=== PATIENT | male | born 1995 | race Caucasian/White ===

== ENCOUNTER 2020-12-30 06:48 | Emergency (ER) | payer BC ==
--- NOTE | 2020-12-30 07:09 | EDM.PDOC ---
ED HPI GENERAL MEDICAL PROBLEM - General Chief Complaint: Chest Pain Stated Complaint: CHEST PAIN Time Seen by Provider: 12/30/20 07:08 Source of Information: Reports: Patient History Limitations: Reports: No Limitations - History of Present Illness INITIAL COMMENTS - FREE TEXT/NARRATIVE: 25-year-old male presents to the ED complaining of retrosternal sharp stabbing chest pains since around 0430 hrs. when he got up for work this morning. Patient states that they are occasionally worse with breathing. He denies cough sputum production fever chills nausea vomiting or heartburn or indigestion. 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 No recent trauma to the chest wall. Pain does not radiate through to his back. He has taken no medication for the discomfort. Onset: Today, Sudden Onset Date: 12/30/20 Onset Time: 04:30 (Awoke with central chest discomfort at 0430 hrs. this morning when he was getting up for work.) Duration: Hour(s):, Intermittent, Waxing/Waning Location: Reports: Chest (Central chest pain which is sharp and stabbing.) Quality: Reports: Sharp, Stabbing Severity: Moderate Improves with: Reports: None Worsens with: Reports: Other (Perhaps made worse by deep breathing.) Context: Denies: Activity, Exercise, Lifting, Sick Contact, Trauma, Other Associated Symptoms: Reports: Chest Pain. 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 [No Known Home Meds] 12/30/20 [History] Past Medical History HEENT History: Reports: Impaired Vision Cardiovascular History: Reports: None Respiratory History: Reports: None Gastrointestinal History: Reports: None Genitourinary History: Reports: None Musculoskeletal History: Reports: None Neurological History: Reports: None Psychiatric History: Reports: None Endocrine/Metabolic History: Reports: None Hematologic History: Reports: None Immunologic History: Reports: None Oncologic (Cancer) History: Reports: None Dermatologic History: Reports: None - Infectious Disease History Infectious Disease History: Reports: Novel Coronavirus - Past Surgical History Head Surgeries/Procedures: Reports: None HEENT Surgical History: Reports: Oral Surgery Respiratory Surgical History: Reports: None GI Surgical History: Reports: None Male Surgical History: Reports: None Musculoskeletal Surgical History: Reports: None Social & Family History - Family History Family Medical History: No Pertinent Family History Oncologic: Reports: Breast, Lung - Tobacco Use Tobacco Use Status *Q: Never Tobacco User - Caffeine Use Caffeine Use: Reports: Energy Drinks - Recreational Drug Use Recreational Drug Use: No - Living Situation & Occupation Living situation: Reports: Single Occupation: Employed ED ROS GENERAL - Review of Systems Review Of Systems: See Below Constitutional: Denies: Fever, Chills, Malaise, Weakness, Fatigue HEENT: Reports: No Symptoms Respiratory: Reports: Pleuritic Chest Pain. Denies: Shortness of Breath, Wheezing, Cough, Sputum (Mildly pleuritic chest pain.), Hemoptysis Cardiovascular: Reports: Chest Pain, Other (Pectus excavating deformity). Denies: Blood Pressure Problem (Central chest pain which is mostly sharp and stabbing intermittent.), Claudication, Dyspnea on Exertion, Edema, Lightheadedness, Orthopnea, Palpitations, PND, Syncope Endocrine: Reports: No Symptoms GI/Abdominal: Reports: No Symptoms : Reports: No Symptoms Musculoskeletal: Reports: No Symptoms Skin: Reports: No Symptoms Neurological: Reports: No Symptoms Psychiatric: Reports: No Symptoms Hematologic/Lymphatic: Reports: No Symptoms Immunologic: Reports: No Symptoms ED EXAM, GENERAL - Physical Exam Exam: See Below Exam Limited By: No Limitations General Appearance: Alert, WD/WN, No Apparent Distress, Other (Temperature is 36.4 degrees. Heart rate 81 and sinus respiratory is 18 BP 137/94 pulse ox 99% room air. Blood pressure subsequently settled to 130/82.) Eye Exam: Bilateral Eye: Normal Inspection Neck: Normal Inspection, Supple, Non-Tender, Full Range of Motion. No: Lymphadenopathy (R) Respiratory/Chest: No Respiratory Distress, Lungs Clear, Normal Breath Sounds, No Accessory Muscle Use, Prolonged Expiration, Other (Gentle pectus excavating deformity anterior chest) Cardiovascular: Normal Peripheral Pulses, Regular Rate, Rhythm, No Edema, No Gallop, No Murmur, No Rub Peripheral Pulses: 3+: Carotid (L), Carotid (R), Posterior Tibial (L), Posterior Tibial (R), Dorsalis Pedis (L), Dorsalis Pedis (R) GI/Abdominal: Normal Bowel Sounds, Soft, Non-Tender, No Organomegaly, No Abnormal Bruit, No Mass, Pelvis Stable Back Exam: Other (Mild scoliosis) Extremities: Normal Inspection (Thoracic spine concave to the right), Normal Range of Motion, Non-Tender Neurological: Alert, Oriented, CN II-XII Intact, Normal Cognition Psychiatric: Normal Affect, Normal Mood Skin Exam: Warm, Dry, Intact, Normal Color, No Rash #1 Interpretation EKG Date: 12/30/20 Time: 06:55 Rhythm: NSR Rate (Beats/Min): 78 [place]: RAD-Right [place] Deviation (Borderline right axis deviation at 100 degrees) P-Wave: Enlarged QRS: Other (Consider biatrial enlargement RSR prime wave V1 consider normal variant. Early R wave transition V2 consider right ventricular appear to be pattern) ST-T: Normal QT: Normal Course - Vital Signs Last Recorded V/S: Last Vital Signs Temp 36.4 C 12/30/20 06:58 Pulse 81 12/30/20 06:58 Resp 18 12/30/20 06:58 BP 137/94 H 12/30/20 06:58 Pulse Ox 99 12/30/20 06:58 - Orders/Labs/Meds Orders: Active Orders 24 hr Category Date Time Status EKG 12 Lead [EKG Documentation Completion] [RC] STAT Care 12/30/20 07:00 Active Dextrose 5%-0.9% NaCl [Dextrose 5%-Normal Saline] 1,000 Med 12/30/20 07:15 Active ml IV ASDIRECTED Ketorolac [Toradol] Med 12/30/20 07:15 Active 30 mg IVPUSH ONETIME Medication Orders Dextrose/Sodium Chloride (Dextrose 5%-Normal Saline) 1,000 mls @ 150 mls/hr IV ASDIRECTED MEHDI Last Admin: 12/30/20 07:50 Dose: 150 mls/hr Documented by: ANA Ketorolac Tromethamine (Ketorolac 30 Mg/Ml Sdv) 30 mg IVPUSH ONETIME MEHDI Last Admin: 12/30/20 07:45 Dose: 30 mg Documented by: ANA Labs: Laboratory Tests 12/30/20 12/30/20 12/30/20 Range/Units 07:00 07:00 07:00 WBC 3.94 L (4.23-9.07) K/mm3 RBC 4.91 (4.63-6.08) M/mm3 Hgb 15.4 (13.7-17.5) gm/dl Hct 43.9 (40.1-51.0) % MCV 89.4 (79.0-92.2) fl MCH 31.4 (25.7-32.2) pg MCHC 35.1 (32.2-35.5) g/dl RDW Std Deviation 38.7 (35.1-43.9) fL Plt Count 317 (163-337) K/mm3 MPV 9.6 (9.4-12.3) fl Neut % (Auto) 49.0 (34.0-67.9) % Lymph % (Auto) 38.6 (21.8-53.1) % [place] % (Auto) 10.9 (5.3-12.2) % Eos % (Auto) 1.0 (0.8-7.0) Baso % (Auto) 0.5 (0.1-1.2) % Neut # (Auto) 1.93 (1.78-5.38) K/mm3 Lymph # (Auto) 1.52 (1.32-3.57) K/mm3 [place] # (Auto) 0.43 (0.30-0.82) K/mm3 Eos # (Auto) 0.04 (0.04-0.54) K/mm3 Baso # (Auto) 0.02 (0.01-0.08) K/mm3 PT 12.0 (9.7-12.0) SECONDS INR 1.12 APTT 32.1 H (21.7-31.4) SECONDS D-Dimer, Quantitative < 0.19 L (0.19-0.50) mg/L Sodium 143 (136-145) mEq/L Potassium 3.8 (3.5-5.1) mEq/L Chloride 107 (98-107) mEq/L Carbon Dioxide 25 (21-32) mEq/L Anion Gap 14.8 (5-15) BUN 10 (7-18) mg/dL Creatinine 0.9 (0.7-1.3) mg/dL Est Cr Clr Drug Dosing 115.71 mL/min Estimated GFR (MDRD) > 60 (>60) mL/min BUN/Creatinine Ratio 11.1 L (14-18) Glucose 101 H (70-99) mg/dL Calcium 9.2 (8.5-10.1) mg/dL Total Bilirubin 0.7 (0.2-1.0) mg/dL AST 14 L (15-37) U/L ALT 19 (16-63) U/L Alkaline Phosphatase 55 (46-116) U/L CK-MB (CK-2) 0.5 (0-3.6) ng/ml Troponin I < 0.017 (0.00-0.056) ng/mL Total Protein 7.5 (6.4-8.2) g/dl Albumin 4.5 (3.4-5.0) g/dl Globulin 3.0 gm/dL Albumin/Globulin Ratio 1.5 (1-2) Meds: Medications Generic Name Dose Route Start Last Admin Trade Name Freq PRN Reason Stop Dose Admin Dextrose/Sodium Chloride 1,000 mls @ 150 mls/hr 12/30/20 07:15 12/30/20 07:50 Dextrose 5%-Normal Saline IV 150 mls/hr ASDIRECTED MEHDI Administration Ketorolac Tromethamine 30 mg 12/30/20 07:15 12/30/20 07:45 Ketorolac 30 Mg/Ml Sdv IVPUSH 30 mg ONETIME MEHDI Administration - Radiology Interpretation Free Text/Narrative:: Lori 5-year-old male presents to the ED with recurrent sharp stab he intermittent central chest discomfort pain since awakening this morning. No associated cough, fever, sputum production. No odynophagia. No heartburn symptoms. Plan D5 normal saline at 125 mils per hour. Routine labs ECG to be performed. Chest x-ray to be performed. Given Toradol 30 mg IV for pain relief. - Re-Assessments/Exams Free Text/Narrative Re-Assessment/Exam: 12/30/20 07:48 portable chest x-ray reveals stacks excavating deformity central chest. Heart and mediastinum are normal. Visualized lung parenchyma are normal. 12/30/20 08:52 Normal white count at 3.94 differential shows 49% neutrophils on the auto differential. Hemoglobin 15.4 with hematocrit of 43.9. Platelet counts 317,000. PT is 12.0 with an INR of 1.12 i.e. mildly elevated PTT is 32.1 D-dimer pending. Sodium 143 with potassium 3.8. Chloride 107 with a bicarb of 25. Anion gap is 14.8. BUN is 10 with a creatinine of 0.9 and GFR greater than 60. Glucose is 101. Calcium is 9.2 liver function is normal. CK-MB fraction is 0.5 with a troponin less than 0.017. Total protein 7.5 with an albumin fraction of 4.5. 12/30/20 09:05 D-dimer is less than 0.19. Patient appraised of the findings of his labs. Still having a little bit of right upper anterior chest discomfort which is worsened by movement. Appears to be musculoskeletal in origin. Patient will use Motrin 600 mg every 6 hours as needed for discomfort. Note given to excuse him from the workplace for the remainder of his shift today. Departure - Departure Time of Disposition: 09:14 Disposition: Home, Self-Care 01 Reason for Transfer *Q: Other Condition: Fair Clinical Impression: Non-cardiac chest pain Instructions: Chest Wall Pain, [id number] Referrals: PCP,None [Primary Care Provider] - Forms: ED Department Discharge, ED Return to Work/School Form Additional Instructions: Evaluation in the emergency room this morning in regards to the development of fairly sharp pain in the central chest and now settled a little bit more to the right of the breastbone or sternum. Chest x-ray proved to be completely normal. ECG your heart tracing was normal as well. Lab test also proved that there was no evidence of any heart related illness and certainly no blood clots in the lungs. Lab test did not show any signs of an infective process. It appears that this is musculoskeletal in origin which means muscles in between the ribs have become inflamed for unknown reason sometimes viral and sometimes overwork 2 to 3 days ago. This will go away on its own over the next 2 to 3 days. May use Motrin 600 mg every 6 hours as needed for pain relief. Follow-up with personal care physician if any further problems occur. Sepsis Event Note (ED) - Evaluation Sepsis Screening Result: No Definite Risk - Focused Exam Vital Signs: Vital Signs Temp Pulse Resp BP Pulse Ox 12/30/20 06:58 36.4 C 81 18 137/94 H 99 - My Orders Last 24 Hours: My Active Orders 12/30/20 07:00 EKG 12 Lead [EKG Documentation Completion] [RC] STAT 12/30/20 07:15 Dextrose 5%-0.9% NaCl [Dextrose 5%-Normal Saline] 1,000 ml IV ASDIRECTED Ketorolac [Toradol] 30 mg IVPUSH ONETIME - Assessment/Plan Last 24 Hours: My Active Orders 12/30/20 07:00 EKG 12 Lead [EKG Documentation Completion] [RC] STAT 12/30/20 07:15 Dextrose 5%-0.9% NaCl [Dextrose 5%-Normal Saline] 1,000 ml IV ASDIRECTED Ketorolac [Toradol] 30 mg IVPUSH ONETIME
[2020-12-30] MEDS ORDERED: Dextrose 5%-0.9% NaCl 1,000 ML IV SCH (07:15)
[2020-12-30] MEDS ORDERED: Ketorolac 30 MG/ML SDV IVPUSH SCH (07:15)
--- NOTE | 2020-12-30 08:37 | CR ---
Chest: Portable view of the chest was obtained. Comparison: No prior chest imaging is available. Heart size and mediastinum are normal. Lungs are clear with no acute parenchymal change. No pleural effusions are seen. No discrete pleural air is seen. No acute osseous abnormality is appreciated. Impression: 1. Nothing acute is appreciated on portable chest x-ray. Diagnostic code #1
== END 2020-12-30 09:27 | disposition home or self-care (01) ==
LOC: JD.ED 06:48
DX: R07.89 Other chest pain (principal); Z86.16 Personal history of COVID-19
CPT/HCPCS: 36415; 71045; 80053; 82553; 84484; 85025; 85379; 85610; 85730; 93005; 96374; 99285; J1885; J7042; 93010; 99284

== ENCOUNTER 2022-04-24 19:22 | Emergency (ER) | payer BC ==
[2022-04-24] MEDS ORDERED: Sodium Chloride 0.9% 1,000 ML IV STA (19:49)
[2022-04-24] MEDS ORDERED: Sodium Chloride 0.9% 10 ML Syringe FLUSH PRN (19:49)
[2022-04-24] MEDS ORDERED: Ondansetron 4 MG/2 ML SDV IVPUSH ONE (19:49)
[2022-04-24] MEDS ORDERED: Famotidine 20 MG/2 ML SDV IVPUSH ONE (19:50)
[2022-04-24] MEDS ORDERED: HYDROmorphone 0.5 MG/0.5 ML Syringe IVPUSH ONE ×2 (19:50→22:34)
== END 2022-04-24 23:04 | disposition home or self-care (01) ==
LOC: JD.ED 19:22
DX: K29.80 Duodenitis without bleeding (principal); Z79.899 Other long term (current) drug therapy
CPT/HCPCS: 36415; 74177; 80053; 81001; 83690; 85025; 96361; 96374; 96375; 96376; 99284; J1170; J2405; J3490; J7030